=== PATIENT | female | born 1940 | race Caucasian/White ===

== ENCOUNTER 2024-05-20 17:14 | Emergency (ER) | payer MEDICARE, SELFPAY ==
[2024-05-20 17:21] VITALS: BP 114/77; PULSE 110; TEMP 36.8; O2SAT 97; BMI 26.5
--- NOTE | 2024-05-20 17:27 | ECG_ITS ---
[facility] Test Date: 2024-05-20 Pat Name: Brooke Pace Department: Room: - Gender: Female [employer] Fe[employer]: : 1940 Requested By: Order Number: [id number] Reading MD: MATT LAMBERT Measurements Intervals [place] Rate: 108 P: 240 DE: 114 QRS: 84 QRSD: 80 T: 12 QT: 344 QTc: 407 Interpretive Statements 1220 Rapid atrial rhythm 1470 with occasional supraventricular premature complexes 2210 Short DE interval 9150 abnormal ECG No previous ECG available for comparison Electronically Signed On 05-20-2024 22:41:29 EDT by MATT LAMBERT
[2024-05-20 18:00] LABS: Basophils Percent Auto 0.3 % (0.2-2.0); Eosinophils Percent Auto 0.3 % (0.9-7.0); Hematocrit 39.6 % (36.0-48.0); Hemoglobin 12.9 g/dL (12.0-16.0); Immature Granulocytes Abs Auto 0.04 10^3/uL (0.00-0.03); Immature Granulocytes Pct Auto 0.3 % (0.0-0.5); Lymphocytes Percent Auto 8.7 % (20.5-60.0); Mean Corpuscular HGB Conc 32.6 g/dL (29.9-35.2); Mean Corpuscular Hemoglobin 32.9 pg (26.7-34.0); Mean Platelet Volume 10.8 fL (9.5-13.5); Monocytes Percent Auto 8.2 % (1.7-12.0); Neutrophils Absolute Auto 9.8 10^3/uL (1.4-6.5); Neutrophils Percent Auto 82.2 % (43.0-75.0); Platelet Count 309 10^3/uL (150-450); Red Blood Count 3.92 10^6/uL (4.20-5.40); Red Cell Distribution Width 12.1 % (11.0-15.0); White Blood Count 11.9 10^3/uL (4.0-11.0)
[2024-05-20] MEDS: ONDANSETRON PF 4 MG/2 ML VIAL IV (18:05)
[2024-05-20 18:11] LABS: Influenza Virus A Antigen Negative; Influenza Virus B Antigen Negative; Internal Control Within Normal Limits; SARS-CoV-2 Ag NEGATIVE (NEGATIVE)
[2024-05-20 18:17] LABS: Alanine Aminotransferase 41 U/L (14-59); Albumin Globulin Ratio 0.7; Albumin Level 2.9 g/dL (3.4-5.0); Alkaline Phosphatase 218 U/L (46-116); Anion Gap 14.3; Aspartate Amino Transferase 27 U/L (15-37); BUN Creatinine Ratio 10.5; Bilirubin Total 0.7 mg/dL (0.2-1.0); Calcium 9.5 mg/dL (8.5-10.1); Carbon Dioxide 29.6 mmol/L (21.0-32.0); Chloride 93 mmol/L (98-107); Estimated GFR (African America >60 (>=60); Estimated GFR (Non-African Ame 50 (>=60); Globulin 4.3 g/dL; Glucose 122 mg/dL (74-106); Sodium 134 mmol/L (136-145); Total Protein 7.2 g/dL (6.4-8.2); Troponin I High Sensitivity 8.3 pg/mL (4.0-51.3)
--- NOTE | 2024-05-20 18:19 | ED.GENADUL1 ---
HPI HPI - General Adult General Chief complaint: Nausea/Vomiting/Diarrhea Stated complaint: nausea, vomiting, lab check per doc Time Seen by Provider: 05/20/24 17:24 Source: patient Mode of arrival: walk-in Limitations: no limitations History of Present Illness HPI narrative: The patient is coming to us with a almost 5 days history of nausea and vomiting associated with loose stool, although the patient mentioned that she does not have diarrhea she only have multiple episodes where she had passing gas not stool The patient has not been tolerating anything for the last 3 to 4 days and she also has been taking her Lasix and was not tolerating taking her potassium The patient will continue negative troponin she get exposed to a lot of people Related Data Home Medications ?Medication ?Instructions ?Recorded ?Confirmed albuterol sulfate 90 mcg/actuation 2 puff inhalation Q8H PRN SOB 05/20/24 05/20/24 aerosol inhaler apixaban 5 mg tablet (Eliquis) 5 mg PO BID 05/20/24 05/20/24 diltiazem HCl 180 mg 180 mg PO .once daily 05/20/24 05/20/24 capsule,extended release 24 hr dofetilide 250 mcg capsule 250 mcg PO BID 05/20/24 05/20/24 fluticasone furoate 200 1 inh inhalation Q24H PRN SOB 05/20/24 05/20/24 mcg-vilanterol 25 mcg/dose inhalation powder (Breo Ellipta) fluticasone propionate 50 1 spray intranasal .once daily 05/20/24 05/20/24 mcg/actuation nasal spray,suspension furosemide 40 mg tablet 40 mg PO BID 05/20/24 05/20/24 metoprolol succinate 50 mg 50 mg PO .once daily 05/20/24 05/20/24 tablet,extended release 24 hr omeprazole 20 mg capsule,delayed 20 mg PO .once daily 05/20/24 05/20/24 release potassium chloride 20 mEq 20 meq PO BID 05/20/24 05/20/24 tablet,extended release Allergies Allergy/AdvReac Type Severity Reaction Status Date / Time No Known Drug Allergies Allergy Verified 05/20/24 17:21 Opioid HPI Opioid Management Most Recent Opioid Data: No Data to Display Review of Systems ROS Status of ROS 10 or more systems reviewed and unremarkable except as noted in history and below PFSH PFSH Social History Little interest or pleasure in doing things: not at all Feeling down, depressed, or hopeless: not at all Exam Narrative Exam Narrative: Nurses notes and vital signs reviewed and patient is not hypoxic. General: Well-appearing and in no apparent distress. Skin: Warm, dry, no pallor noted. No rash. Head: Normocephalic, atraumatic. Neck: Supple, non-tender. Eye: Pupils are equal, round and EOMI. No scleral icterus. Ears, Nose, Mouth, and Throat: TM are clear, no nasal mucosal hypertrophy. Oral mucosa is moist, no posterior oropharynx erythema, uvula is mid-line Cardiovascular: Regular Rate and Rhythm without murmur, gallop or rub. Respiratory: No accessory muscle use or respiratory distress. Lungs are clear to auscultation, no wheezing, rales or rhonchi Chest Wall: no tenderness Back: No midline thoracic or lumbar vertebral tenderness. No CVA tenderness Musculoskeletal: normal ROM, no calf or popliteal tenderness, no lower extremity edema/swelling GI: Abdomen is soft, mildly distended. Normal bowel sounds. No masses appreciated. No tenderness to palpation. No rebound, guarding, or rigidity noted. Neurological: A&O x4. No cranial nerve dysfunction observed. No truncal ataxia. Moves all extremities. Sensation intact. Psychiatric: Cooperative and interactive. Normal mood and affect. Constitutional Vital Signs, click to edit/add: Last Vital Signs Temp 98.3 F 05/20/24 17:21 Pulse 110 H 05/20/24 17:21 Resp 18 05/20/24 17:21 BP 114/77 05/20/24 17:21 Pulse Ox 97 05/20/24 17:21 O2 Del Method Room Air 05/20/24 17:21 Course Vital Signs Vital signs: Vital Signs Temperature 98.3 F 05/20/24 17:21 Pulse Rate 110 H 05/20/24 17:21 Respiratory Rate 18 05/20/24 17:21 Blood Pressure 114/77 05/20/24 17:21 Pulse Oximetry 97 05/20/24 17:21 Oxygen Delivery Method Room Air 05/20/24 17:21 Temperature 98.3 F 05/20/24 17:21 Pulse Rate 110 H 05/20/24 17:21 Respiratory Rate 18 05/20/24 17:21 Blood Pressure 114/77 05/20/24 17:21 Pulse Oximetry 97 05/20/24 17:21 Oxygen Delivery Method Room Air 05/20/24 17:21 Medical Decision Making MDM Narrative Medical decision making narrative: The patient EKG showing sinus rhythm with a heart rate of [address] elevation or depression no prolongation of QTc The patient chemistry showing a potassium level of 2.9 It was noted that the patient did not have any regular bowel movement for the last few days only passing gas and she does have nausea and vomiting with mild abdominal distention The patient CAT scan without contrast is pending she was started on IV potassium 10 mEq for now and her care will be transferred to Dr. Marina awaiting the results of the CT abd Lab Data Labs: Lab Results 05/20/24 05/20/24 Range/Units 17:51 17:53 WBC 11.9 H (4.0-11.0) 10^3/uL RBC 3.92 L (4.20-5.40) 10^6/uL Hgb 12.9 (12.0-16.0) g/dL Hct 39.6 (36.0-48.0) % MCV 101.0 H (81.0-99.0) fL MCH 32.9 (26.7-34.0) pg MCHC 32.6 (29.9-35.2) g/dL RDW 12.1 (11.0-15.0) % Plt Count 309 (150-450) 10^3/uL MPV 10.8 (9.5-13.5) fL Neut % (Auto) 82.2 H (43.0-75.0) % Lymph % (Auto) 8.7 L (20.5-60.0) % [place] % (Auto) 8.2 (1.7-12.0) % Eos % (Auto) 0.3 L (0.9-7.0) % Baso % (Auto) 0.3 (0.2-2.0) % Neut # (Auto) 9.8 H (1.4-6.5) 10^3/uL Lymph # (Auto) 1.0 L (1.2-3.8) 10^3/uL [place] # (Auto) 1.0 H (0.3-0.8) 10^3/uL Eos # (Auto) 0.0 (0.0-0.7) 10^3/uL Baso # (Auto) 0.0 (0.0-0.1) 10^3/uL Abs Immat Gran (auto) 0.04 H (0.00-0.03) 10^3/uL Imm/Tot Granulo (auto) 0.3 (0.0-0.5) % Sodium 134 L (136-145) mmol/L Potassium 2.9 L* (3.5-5.1) mmol/L Chloride 93 L (98-107) mmol/L Carbon Dioxide 29.6 (21.0-32.0) mmol/L Anion Gap 14.3 BUN 11.0 (7.0-18.0) mg/dL Creatinine 1.05 H (0.55-1.02) mg/dL Est GFR ( Amer) >60 (>=60) Est GFR (Non-Af Amer) 50 L (>=60) BUN/Creatinine Ratio 10.5 Glucose 122 H (74-106) mg/dL Calcium 9.5 (8.5-10.1) mg/dL Magnesium 2.0 (1.8-2.4) mg/dL Total Bilirubin 0.7 (0.2-1.0) mg/dL AST 27 (15-37) U/L ALT 41 (14-59) U/L Alkaline Phosphatase 218 H (46-116) U/L Troponin I High Sens 8.3 (4.0-51.3) pg/mL Total Protein 7.2 (6.4-8.2) g/dL Albumin 2.9 L (3.4-5.0) g/dL Globulin 4.3 g/dL Albumin/Globulin Ratio 0.7 Influenza Type A Ag Negative Influenza Type B Ag Negative SARS-CoV-2 Ag (CV2AG) Negative (NEGATIVE) Discharge Plan Discharge Patient Disposition: Still a Patient
[2024-05-20] MEDS: 0.9 % SODIUM CHLORIDE 1,000 ML 500 ML IV (18:23)
[2024-05-20] MEDS: FAMOTIDINE/PF 20 MG/2 ML VIAL IV (18:23)
[2024-05-20 18:25] LABS: Potassium 2.9 mmol/L (3.5-5.1)
--- NOTE | 2024-05-20 18:31 | CT_ITS ---
[address] [address] Patient Name: JESSICA COWAN MRN: [id number] date: 1940 Sex: F Assigned Patient Location: ER Current Patient Location: Accession/Order Number: [id number] Exam Date: 05/20/2024 19:05 Report Date: 05/20/2024 20:49 At the request of: LENORE GAYLE Procedure: CT abdomen pelvis wo con Indication: Intractable nausea and abdominal distention. Comparison: None Procedure: Axial images were made from the diaphragms through the symphysis pubis. No oral contrast or intravenous contrast was given. Dose reduction techniques were achieved by using automated exposure control and/or adjustment of mA and/or kV according to patient size and/or use of iterative reconstruction technique. Findings: Liver/Biliary System: Diffuse fatty infiltration of the liver. No liver masses are seen. No intra or extrahepatic biliary dilatation. No gallstones or cholecystitis. Pancreas/Spleen: No evidence of acute pancreatitis. Pancreatic duct is not dilated. No splenomegaly. Kidneys/Adrenals: Bilateral renal nonobstructive stones measuring up to 5 mm. No ureteral stones. No hydronephrosis or hydroureter bilaterally. A 2.1 cm hyperdense lesion in upper pole of right kidney, probably hemorrhagic/proteinaceous cyst. Ultrasound may be recommended on a nonemergent basis for further assessment. No adrenal nodules. Aorta/Vessels: No evidence of aortic aneurysm. Evaluation of vessels is limited due to lack of IV contrast. Bowel/Fluid/Nodes: Moderate hiatus hernia. No bowel dilatation or bowel wall thickening. No evidence of bowel obstruction. Colonic diverticulosis with no evidence of diverticulitis. Appendix was not identified, however no secondary signs of appendicitis present. No ascites or fluid collections. No adenopathy. Lung bases: Clear. Other findings: No aggressive osseous lesions are seen. 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 Lumbar scoliosis. 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 Bladder, uterus and adnexa grossly unremarkable. No free fluid seen in the pelvis. No pelvic adenopathy. Other Findings: No aggressive osseous lesions are seen. CT/CT abdomen pelvis wo con Impression: 1. No evidence of acute abdominal or pelvic process. 2. Moderate hiatus hernia. Colonic diverticulosis. No evidence of bowel obstruction. 3. Bilateral renal nonobstructive stones measuring up to 5 mm. No hydronephrosis. A 2.1 cm hyperdense lesion in upper pole of right kidney, probably hemorrhagic/proteinaceous cyst. Ultrasound may be recommended on a nonemergent basis for further assessment. 4. Diffuse fatty infiltration of the liver. 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 Lumbar scoliosis. Electronically authenticated by: LION SWENSON Date: 05/20/2024 20:49
--- NOTE | 2024-05-20 18:38 | PC.NURSE ---
PT FELL ASLEEP IN BED -- SPO2 88% ON RA. NO RESP DISTRESS AT THIS TIME. PLACED ON 2L NC 98%
[2024-05-20] MEDS: POTASSIUM CHLORIDE IN WATER 10 MEQ/100 ML PREMIX 100 MEQ IV (18:46)
[2024-05-20 18:50] VITALS: PULSE 102; O2SAT 99
[2024-05-20 19:41] VITALS: BP 120/82; PULSE 102; O2SAT 99
--- NOTE | 2024-05-20 21:07 | ED_ITS ---
HPI - Nausea/Vomiting/Diarrhea General Chief complaint: Nausea/Vomiting/Diarrhea Stated complaint: nausea, vomiting, lab check per doc Time Seen by Provider: 05/20/24 17:24 Source: patient Mode of arrival: walk-in Limitations: no limitations History of Present Illness HPI Narrative: 83-year-old female presents to the emergency department and was initially seen by Dr. Sandoval and signed out to me after discussing the case with her thoroughly. Please see her full history and physical exam. Related Data Home Medications ?Medication ?Instructions ?Recorded ?Confirmed albuterol sulfate 90 mcg/actuation 2 puff inhalation Q8H PRN SOB 05/20/24 05/20/24 aerosol inhaler apixaban 5 mg tablet (Eliquis) 5 mg PO BID 05/20/24 05/20/24 diltiazem HCl 180 mg 180 mg PO .once daily 05/20/24 05/20/24 capsule,extended release 24 hr dofetilide 250 mcg capsule 250 mcg PO BID 05/20/24 05/20/24 fluticasone furoate 200 1 inh inhalation Q24H PRN SOB 05/20/24 05/20/24 mcg-vilanterol 25 mcg/dose inhalation powder (Breo Ellipta) fluticasone propionate 50 1 spray intranasal .once daily 05/20/24 05/20/24 mcg/actuation nasal spray,suspension furosemide 40 mg tablet 40 mg PO BID 05/20/24 05/20/24 metoprolol succinate 50 mg 50 mg PO .once daily 05/20/24 05/20/24 tablet,extended release 24 hr omeprazole 20 mg capsule,delayed 20 mg PO .once daily 05/20/24 05/20/24 release potassium chloride 20 mEq 20 meq PO BID 05/20/24 05/20/24 tablet,extended release Previous Rx's ?Medication ?Instructions ?Recorded ondansetron 4 mg disintegrating 4 mg PO Q6H PRN nausea and 05/20/24 tablet vomiting #20 tabs Allergies Allergy/AdvReac Type Severity Reaction Status Date / Time No Known Drug Allergies Allergy Verified 05/20/24 17:21 PFSH PFSH Social History Little interest or pleasure in doing things: not at all Feeling down, depressed, or hopeless: not at all Exam Constitutional Vital Signs, click to edit/add: Last Vital Signs Temp 98.3 F 05/20/24 17:21 Pulse 102 H 05/20/24 19:41 Resp 18 05/20/24 19:41 BP 120/82 05/20/24 19:41 Pulse Ox 99 05/20/24 19:41 O2 Del Method Room Air 05/20/24 19:41 O2 Flow Rate 2 05/20/24 18:50 Course Vital Signs Vital signs: Vital Signs Temperature 98.3 F 05/20/24 17:21 Pulse Rate 110 H 05/20/24 17:21 Respiratory Rate 18 05/20/24 17:21 Blood Pressure 114/77 05/20/24 17:21 Pulse Oximetry 97 05/20/24 17:21 Oxygen Delivery Method Room Air 05/20/24 17:21 Temperature 98.3 F 05/20/24 17:21 Pulse Rate 102 H 05/20/24 19:41 Respiratory Rate 18 05/20/24 19:41 Blood Pressure 120/82 05/20/24 19:41 Pulse Oximetry 99 05/20/24 19:41 Oxygen Delivery Method Room Air 05/20/24 19:41 Oxygen Delivery Flow Rate 2 05/20/24 18:50 MDM - Nausea/Vomiting/Diarrhea MDM Narrative Medical decision making narrative: CAT scan has come back with no acute findings. She feels much better and is able to be discharged home. Treatment diagnosis and follow-up were discussed with the patient and her family. Differential Diagnosis Differential diagnosis: Likely food poisoning, gastroenteritis and dehydration Lab Data Attestation: I reviewed the patient's lab results. Labs: Lab Results 05/20/24 05/20/24 Range/Units 17:51 17:53 WBC 11.9 H (4.0-11.0) 10^3/uL RBC 3.92 L (4.20-5.40) 10^6/uL Hgb 12.9 (12.0-16.0) g/dL Hct 39.6 (36.0-48.0) % MCV 101.0 H (81.0-99.0) fL MCH 32.9 (26.7-34.0) pg MCHC 32.6 (29.9-35.2) g/dL RDW 12.1 (11.0-15.0) % Plt Count 309 (150-450) 10^3/uL MPV 10.8 (9.5-13.5) fL Neut % (Auto) 82.2 H (43.0-75.0) % Lymph % (Auto) 8.7 L (20.5-60.0) % [place] % (Auto) 8.2 (1.7-12.0) % Eos % (Auto) 0.3 L (0.9-7.0) % Baso % (Auto) 0.3 (0.2-2.0) % Neut # (Auto) 9.8 H (1.4-6.5) 10^3/uL Lymph # (Auto) 1.0 L (1.2-3.8) 10^3/uL [place] # (Auto) 1.0 H (0.3-0.8) 10^3/uL Eos # (Auto) 0.0 (0.0-0.7) 10^3/uL Baso # (Auto) 0.0 (0.0-0.1) 10^3/uL Abs Immat Gran (auto) 0.04 H (0.00-0.03) 10^3/uL Imm/Tot Granulo (auto) 0.3 (0.0-0.5) % Sodium 134 L (136-145) mmol/L Potassium 2.9 L* (3.5-5.1) mmol/L Chloride 93 L (98-107) mmol/L Carbon Dioxide 29.6 (21.0-32.0) mmol/L Anion Gap 14.3 BUN 11.0 (7.0-18.0) mg/dL Creatinine 1.05 H (0.55-1.02) mg/dL Est GFR ( Amer) >60 (>=60) Est GFR (Non-Af Amer) 50 L (>=60) BUN/Creatinine Ratio 10.5 Glucose 122 H (74-106) mg/dL Calcium 9.5 (8.5-10.1) mg/dL Magnesium 2.0 (1.8-2.4) mg/dL Total Bilirubin 0.7 (0.2-1.0) mg/dL AST 27 (15-37) U/L ALT 41 (14-59) U/L Alkaline Phosphatase 218 H (46-116) U/L Troponin I High Sens 8.3 (4.0-51.3) pg/mL Total Protein 7.2 (6.4-8.2) g/dL Albumin 2.9 L (3.4-5.0) g/dL Globulin 4.3 g/dL Albumin/Globulin Ratio 0.7 Influenza Type A Ag Negative Influenza Type B Ag Negative SARS-CoV-2 Ag (CV2AG) Negative (NEGATIVE) Imaging Data CT scan - abdomen: Radiologist's impression: ITS Impressions Abdomen/Pelvis CT 05/20/24 18:31 Impression: 1. No evidence of acute abdominal or pelvic process. 2. Moderate hiatus hernia. Colonic diverticulosis. No evidence of bowel obstruction. 3. Bilateral renal nonobstructive stones measuring up to 5 mm. No hydronephrosis. A 2.1 cm hyperdense lesion in upper pole of right kidney, probably hemorrhagic/proteinaceous cyst. Ultrasound may be recommended on a nonemergent basis for further assessment. 4. Diffuse fatty infiltration of the liver. 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 Lumbar scoliosis. Electronically authenticated by: LION SWENSON Date: 05/20/2024 20:49 Discharge Plan Discharge Chief Complaint: Nausea/Vomiting/Diarrhea Clinical Impression: Acute hypokalemia, Nausea & vomiting Patient Disposition: Home, Self-Care Time of Disposition Decision: 21:06 Condition: Good Mode of Transportation: Private Vehicle Prescriptions / Home Meds: New ondansetron 4 mg tablet,disintegrating 4 mg PO Q6H PRN (Reason: nausea and vomiting) Qty: 20 0RF No Action albuterol sulfate 90 mcg/actuation HFA aerosol inhaler 2 puff INHALATION Q8H PRN (Reason: SOB) Eliquis 5 mg tablet 5 mg PO BID diltiazem HCl 180 mg capsule,extended release 24hr 180 mg PO .once daily dofetilide 250 mcg capsule 250 mcg PO BID fluticasone furoate-vilanterol [Breo Ellipta] 200-25 mcg/dose blister with device 1 inh INHALATION Q24H PRN (Reason: SOB) fluticasone propionate 50 mcg/actuation spray,suspension 1 spray INTRANASAL .once daily furosemide 40 mg tablet 40 mg PO BID potassium chloride 20 mEq tablet extended release 20 meq PO BID omeprazole 20 mg capsule,delayed release(DR/EC) 20 mg PO .once daily metoprolol succinate 50 mg tablet extended release 24 hr 50 mg PO .once daily Print Language: Macedonian Instructions: Acute Nausea and Vomiting (ED) Referrals: LUIS NELSON [Primary Care Provider] - 1 week
--- NOTE | 2024-05-20 21:25 | PC.NURSE ---
Drinks juice without nausea or vomiting.
== END 2024-05-20 21:29 | disposition home or self-care (01) ==
PROVIDERS: Emergency Medicine; Emergency Provider Emergency Medicine; PCP Family Medicine
DX: E87.6 Hypokalemia (principal); R11.2 Nausea with vomiting, unspecified; Z20.822 Contact with and (suspected) exposure to COVID-19
CPT/HCPCS: 36415; 74176; 80053; 83735; 84484; 85025; 87804; 87811; 93005; 96361; 96365; 96375; 99285; J2405; J3480